=== PATIENT | female | born 1980 | race Caucasian/White ===

== ENCOUNTER 2024-06-06 07:35 | Day surgery (SDC) | payer BC ==
[2024-06-06] MEDS: Lactated Ringers 1,000 ML IV SCH (07:55)
[2024-06-06] MEDS ORDERED: fentaNYL 100 MCG/2 ML SDV ONE (08:54)
[2024-06-06] MEDS ORDERED: Midazolam 1 MG/ML 2 ML SDV ONE (08:54)
[2024-06-06] MEDS ORDERED: Propofol 200 MG/20 ML SDV ONE (08:54)
== END 2024-06-06 09:59 | disposition home or self-care (01) ==
LOC: VM.SDS 07:35
PROVIDERS: ATTEND Student in an Organized Health Care Education/Training Program
DX: Z12.11 Encounter for screening for malignant neoplasm of colon (principal); F33.1 Major depressive disorder, recurrent, moderate; Z79.899 Other long term (current) drug therapy
CPT/HCPCS: 00811; J2250; J2704; J3010; J7120